=== PATIENT | female | born 1940 | race Caucasian/White ===

== ENCOUNTER 2016-06-14 12:49 | Day surgery (SDC) | payer MEDICARE, OTHER ==
[2016-06-14 13:17] VITALS: BP 162/93; PULSE 67; RESP 20; TEMP 98.1; O2SAT 94
--- NOTE | 2016-06-14 14:55 | RADRPT ---
EXAM DATE/TIME: 06/14/2016 00:00 [facility] COMPARISON : No previous studies available for comparison. INDICATIONS : Aneurysm OBJECTIVE: Temperature: 98.1 Heart Rate: 87 Blood Pressure: 121/70 Respiratory: 18 Oximetry: 95 PNEUMONIA VACCINE: YES HISTORY OF PRESENT ILLNESS: #1. Left cerebral aneurysm #2. Left carotid stenosis PAST MEDICAL HISTORY : 1. Hypercholesterolemia. 2. Hypothyroidism. 3. Anxiety PAST SURGICAL HISTORY : 1. Breast cyst removal 2. Tonsilectomy 3. Colonoscopy SOCIAL HISTORY : No alcohol use. No alcohol use. Tobacco;former. ALLERGIES: 1. NKDA MEDICATIONS: 1. Fluoxetine 40 mg q.d. 2. Zocor (Simvastatin) 20 mg q.d. 3. Levothyroxin 100 mcg q.d. PHYSICAL EXAMINATION: Please see H&P from Dr. Maldonado Patient appears neurologically intact IMAGING STUDIES: MRA of the carotid arteries and brain was performed 05/13/2016 MRA carotids: Apparent significant luminal narrowing is identified in the proximal left internal carotid artery how ever motion artifact over the affected area is noted. MRA brain: A 7 mm aneurysm is identified originating from the intracranial segments of the left ICA. Aneurysm ap pears to have a favorable neck for endovascular treatment ASSESSMENT: Left internal carotid artery stenosis which may be hemodynamically significant. Left intracranial cerebral aneurysm which appears favorable for endovascular treatment. PLAN: Further evaluation of the carotid stenosis and aneurysm is needed with CTA. Urgent CTA has been reque sted at [facility]. TIME SPENT: 30 minutes Danie Christensen MD on June 14, 2016 at 14:36 Board Certified Radiologist. This report was verified electronically.
== END 2016-06-14 14:50 | disposition home or self-care (01) ==
LOC: HROP 12:49 → HRIP 12:53 → HROP 14:50
PROVIDERS: ATTEND Radiology Diagnostic Radiology
DX: I65.22 Occlusion and stenosis of left carotid artery (principal); I67.1 Cerebral aneurysm, nonruptured; E03.9 Hypothyroidism, unspecified; E78.00 Pure hypercholesterolemia, unspecified; F41.9 Anxiety disorder, unspecified
CPT/HCPCS: 99213; G0463

== ENCOUNTER 2016-06-19 08:45 | Inpatient (IN) | payer MEDICARE, OTHER ==
[~2016-06-19] VITALS: Ht 167.6 cm; Wt 71.6 kg
[2016-06-19 09:11] VITALS: BP 162/97; PULSE 77; RESP 20; TEMP 98.4; O2SAT 94
[2016-06-19] MEDS ORDERED: LEVO100T5 PO (09:20)
[2016-06-19] MEDS ORDERED: ZOCO20TA PO ×2 (09:20→18:50)
[2016-06-19] MEDS ORDERED: FLUO10CA5 PO (09:20)
[2016-06-19 09:59] LABS: AUTOMATED NEUTROPHIL # 3.4 TH/MM3 (1.8-7.7); BASOPHIL % 0.5 % (0.0-2.0); EOSINOPHIL # 0.1 TH/MM3 (0-0.4); EOSINOPHIL % 2.2 % (0.0-4.0); HEMATOCRIT 40.2 % (35.0-46.0); HEMO FLAGS DIFF FINAL; LYMPH % 28.4 % (9.0-44.0); LYMPHOCYTE # 1.6 TH/MM3 (1.0-4.8); MEAN CELL VOLUME 87.7 FL (80.0-100.0); MEAN CORPUSCULAR HEMOGLOBIN 29.5 PG (27.0-34.0); MEAN CORPUSCULAR HGB CONC 33.7 % (32.0-36.0); MONO % 10.3 % (0.0-8.0); NEUT % 58.6 % (16.0-70.0); PLATELET COUNT 203 TH/MM3 (150-450); RED BLOOD COUNT 4.59 MIL/MM3 (4.00-5.30); RED CELL DISTRIBUTION WIDTH 14.6 % (11.6-17.2); WHITE BLOOD COUNT 5.8 TH/MM3 (4.0-11.0)
[2016-06-19 10:04] LABS: APTT (PATIENT) 25.3 SEC (24.3-30.1); PROTHROMBIN TIME - PATIENT 10.8 SEC (9.8-11.6)
[2016-06-19 10:20] LABS: BICARBONATE 24.1 MEQ/L (21.0-32.0)
[2016-06-19] MEDS ORDERED: VERAPAMIL HCL 5 MG/2 ML VIAL ONE (13:44)
[2016-06-19] MEDS ORDERED: MIDAZOLAM HCL 2 MG/2 ML VIAL ONE (15:12)
[2016-06-19] MEDS ORDERED: fentaNYL CITRATE 250 MCG/5 ML AMP ONE (15:13)
[2016-06-19] MEDS ORDERED: HEPARIN SODIUM - IV 10,000 UNITS/10 ML VIAL ONE (15:19)
--- NOTE | 2016-06-19 16:37 | PD.RAD ---
Post Procedure Progress Note Pre Procedure Diagnosis: (1) Cerebral aneurysm without rupture Post Procedure Diagnosis: (1) Cerebral aneurysm without rupture Procedure Date: Jun 19, 2016 Supervising Radiologist: Danie Christensen Proceduralist/Assist: Dane Wood, RT(R), Yue Rebollar RT(R)(), Christina Natarajan RT(R)() Anesthesia: General, Local Plan of Activity Patient to Unit: Critical Care Patient Condition: Good See PACS Report for procedural detail/treatment Vascular-Arterial Procedure Procedure 1 Procedure Site: Cerebral Procedure(s): Intracranial Aneurysm Repair Access Access Site(s): Right Femoral Artery Closure Site(s): Right vascular closure device Findings: 7-8mm Lt ICA intracranial aneurysm. 3 mm Lt MCA (M2) aneurysm. Treament Area: Lt ICA aneurysm treated with endovascular coiling. No Acute complications during procedure. Plan Pt to [facility] for post coiling monitoring. Discharge in am on 06/20 if neurologically stable. Danie Christensen MD Jun 19, 2016 16:37
[2016-06-19] MEDS ORDERED: IODIXANOL 320 MG/ML 50 ML VIAL (for RAD SPEC) I-ARTERIAL ONE (16:43)
[2016-06-19] MEDS ORDERED: ACETAMINOPHEN 325 MG TAB PO PRN (16:45)
[2016-06-19 18:00] VITALS: PULSE 68
[2016-06-19] MEDS ORDERED: DO NOT ADM ANY ANTICOAGULANT DRUGS PRN (18:30)
--- NOTE | 2016-06-19 19:00 | PD.CONS ---
HPI Service [facility] Consult Requested By Dr. Lomax Reason for Consult Hx of: Hyperlipidemia, Hypothyroidism, Anxiety - status post Intracranial stenting today, for aneurysm - acute right ear bleed Primary Care Physician Maya Maldonado M.D. Diagnoses: (1) Cerebral aneurysm without rupture (2) Generalized anxiety disorder (3) Hyperlipidemia (4) Hypothyroidism (5) Ear bleeding History of Present Illness Mrs. Lindsay is a 75 year old female. She is here for stenting of an intracranial anneurysm. This process is completed and I am seeing her after the procedure. A recent onset of bleeding of her right ear canal is reported. She used a Q-tip this morning and feels she may have irritated or scratched her ear at that time. With recent heparin use she may have some bleeding related to this. Presently she has a headache, but it is not worse than what has been present all day. No neuro deficits reported. Review of Systems Constitutional: DENIES: Chills, Dizziness Eyes: DENIES: Blurred vision Ears, nose, mouth, throat: DENIES: Throat pain, Ear Pain Respiratory: DENIES: Shortness of breath Cardiovascular: DENIES: Chest pain Gastrointestinal: DENIES: Abdominal pain Neurologic: COMPLAINS OF: Headache, DENIES: Localized weakness, Paresthesias, Seizures, Speech Problems Past Family Social History Allergies: Coded Allergies: No Known Allergies (Unverified , 06/19/16) Past Medical History (stated in H&P) Reported Medications Reported Meds & Active Scripts Active Reported Zocor (Simvastatin) 20 Mg Tab 20 Mg PO DAILY Levothyroxine (Levothyroxine Sodium) 100 Mcg Tab 100 Mcg PO DAILY Fluoxetine (Fluoxetine HCl) 10 Mg Cap 4 Mg PO DAILY Active Ordered Medications Administered Medications Medications (Trade) Dose Ordered Sig/Anna Route PRN Reason Start Time Stop Time Status Last Admin Dose Admin Acetaminophen (Tylenol) 650 mg Q4H PRN PO PAIN SCALE 1 TO 10 06/19/16 16:45 06/19/16 18:07 Physical Exam Vital Signs Vital Signs Date Time Temp Pulse Resp B/P Pulse Ox O2 Delivery O2 Flow Rate FiO2 06/19/16 18:00 68 06/19/16 17:40 66 14 157/89 98 Nasal Cannula 2 06/19/16 17:30 67 14 161/63 98 Nasal Cannula 2 06/19/16 17:15 67 14 167/87 98 Nasal Cannula 2 06/19/16 17:00 70 14 160/84 99 Nasal Cannula 2 06/19/16 16:50 97.4 71 14 159/81 99 Nasal Cannula 2 06/19/16 09:24 94 Room Air 06/19/16 09:11 98.4 77 20 162/97 94 Physical Exam GENERAL: A&Ox3, NAD SKIN: Warm and dry. HEAD: Normocephalic. EYES: No scleral icterus. No injection or drainage. Ears: Left ear is normal in appearance. Right ear has blood pooled within the ear canal and against the tympanic membrane. Full visualization is not possible with blood. No tenderness with maneuvering of ear. No evidence of erythema or bulging in what can be seen. I see evidence of a low volume bleed, but no active bleed to denote relative high blood loss for that area. (rebleed of previously sustained benign abrasion due to heparin suspected) NECK: Supple, trachea midline. No JVD or lymphadenopathy. CARDIOVASCULAR: Regular rate and rhythm without murmurs, gallops, or rubs. RESPIRATORY: Breath sounds equal bilaterally. No accessory muscle use. GASTROINTESTINAL: Abdomen soft, non-tender, nondistended. MUSCULOSKELETAL: No cyanosis, or edema. BACK: Nontender without obvious deformity. No CVA tenderness. Laboratory Laboratory Tests Test 06/19/16 09:35 White Blood Count 5.8 Red Blood Count 4.59 Hemoglobin 13.5 Hematocrit 40.2 Mean Corpuscular Volume 87.7 Mean Corpuscular Hemoglobin 29.5 Mean Corpuscular Hemoglobin 33.7 Concent Red Cell Distribution Width 14.6 Platelet Count 203 Mean Platelet Volume 8.3 Neutrophils (%) (Auto) 58.6 Lymphocytes (%) (Auto) 28.4 Monocytes (%) (Auto) 10.3 Eosinophils (%) (Auto) 2.2 Basophils (%) (Auto) 0.5 Neutrophils # (Auto) 3.4 Lymphocytes # (Auto) 1.6 Monocytes # (Auto) 0.6 Eosinophils # (Auto) 0.1 Basophils # (Auto) 0.0 CBC Comment DIFF FINAL Differential Comment Prothrombin Time 10.8 Prothromb Time International 1.0 Ratio Activated Partial 25.3 Thromboplast Time Sodium Level 140 Potassium Level 4.0 Chloride Level 106 Carbon Dioxide Level 24.1 Anion Gap 10 Blood Urea Nitrogen 14 Creatinine 0.80 Estimat Glomerular Filtration 70 Rate Random Glucose 99 Calcium Level 8.9 Result Diagram: 06/19/16 0935 06/19/1635 Assessment and Plan Problem List: (1) Cerebral aneurysm without rupture ICD Code: I67.1 Status: Acute Plan: Status post stenting today Follow clinically overnight Patient to report any neuro changes or change in headache (2) Generalized anxiety disorder ICD Code: F41.1 Status: Chronic Plan: Resume SSRI in AM (3) Hyperlipidemia ICD Code: E78.5 Status: Acute Plan: Resume statin (4) Hypothyroidism ICD Code: E03.9 Status: Acute Plan: Resume treatment in AM (5) Ear bleeding ICD Code: H92.20 Status: Acute Plan: Etiology is likely abrasion from Q-tip use in AM with rebleeding from heparin use Low risk for tympanic perforation Blood obstructs view of right tympanic membrane No erythema on visualized aspects of ear and tympanic membrane No signs of bulging of tympanic membrane Will evaluate again in AM Problem Qualifiers (1) Hyperlipidemia: Qualified Code: E78.5 - Hyperlipidemia, unspecified hyperlipidemia type (2) Hypothyroidism: Qualified Code: E03.9 - Hypothyroidism, unspecified type (3) Ear bleeding: Qualified Code: H92.21 - Ear bleeding, right Benjie Beavers MD Jun 19, 2016 19:00
[2016-06-19 20:00] VITALS: BP 120/61; PULSE 66; RESP 24; TEMP 97.7; O2SAT 96
[2016-06-19] MEDS: oxyCODONE/ACETAMINOPHEN 5 MG/325 MG TAB PO PRN (20:02)
[2016-06-19] MEDS ORDERED: ATORVASTATIN 20 MG TAB PO SCH (21:00)
--- NOTE | 2016-06-19 21:57 | EKG ---
Date Performed: 06/19/2016 Time Performed: 09:22:07 PTAGE: 75 years EKG: Sinus rhythm WITH MARKED SINUS ARRHYTHMIA BORDERLINE ECG NO PREVIOUS TRACING DOCTOR: Tony Johnson Interpretating Date/Time 06/19/2016 21:56:17
[2016-06-19 22:00] VITALS: PULSE 64
[2016-06-20] VITALS: BP 101/61; PULSE 65; RESP 16; TEMP 97.7; O2SAT 95
[2016-06-20 02:00] VITALS: PULSE 76
[2016-06-20 04:00] VITALS: BP 118/62; PULSE 65; RESP 22; TEMP 98; O2SAT 95
[2016-06-20] MEDS: oxyCODONE/ACETAMINOPHEN 5 MG/325 MG TAB PO PRN ×2 (04:24→08:55)
[2016-06-20 06:00] VITALS: PULSE 63
[2016-06-20] MEDS ORDERED: LEVOTHYROXINE SODIUM 100 MCG TAB PO SCH (06:00)
[2016-06-20 08:00] VITALS: BP 140/63; PULSE 74; PULSE 85; PULSE 87; RESP 13; TEMP 98.2; O2SAT 97
--- NOTE | 2016-06-20 08:21 | PD.RAD ---
Radiology Note Status post Lt ICA intracranial aneurysm coiling. S: Pt alert and oriented. O: Neurologically intact. Groin supple without hematoma. A: Doing well s/p coiling. P: Pt ok to discharge to self care. Post procedure instructions given. Follow up appt on July 08 in [facility]. Danie Christensen MD Jun 20, 2016 08:21
--- NOTE | 2016-06-20 08:46 | RADRPT ---
EXAM DATE/TIME: 06/19/2016 14:56 [facility] COMPARISON: No previous studies available for comparison. INDICATIONS : Patient is in need of a cerebral angiogram with arterial embolization due to left sided aneurysm. MEDICAL HISTORY : History of hypothyroidism, hypercholesteremia, osteopenia, anxiety. SURGICAL HISTORY : History of breast cyst removal, tonsillectomy, colonoscopy. ENCOUNTER: Initial ACUITY: 4-6 months PAIN SCORE: 0/10 FLUORO TIME: 23.3 minutes IMAGE SERIES: 14 ACCESS SITE: Right Femoral artery CONTRAST: 74 cc Visipaque (iodixanol) MEDICATION(S): 1.) 7000 units Heparin IV Vancomycin within 2 hours of procedure, Ancef (or alternative) within 1 hour of procedure. DEVICE(S): 1.) Left internal carotid artery embolic coil(s) 7mm x 14cm Micrusphere 2.) Left internal carotid artery embolic coil(s) 6mm x 10cm Galaxy Fill 3.) Left internal carotid artery embolic coil(s) 5mm x 10cm Galaxy Fill 4.) Left internal carotid artery embolic coil(s) 4mm x 6cm Galaxy Fill 5.) Left internal carotid artery embolic coil(s) 3mm x 6cm Galaxy Fill 6.) Right common femoral artery 6Fr Angio-Seal Anesthesia and pain control was provided by the Anesthesia department. PROCEDURE : 1. Ultrasound-guided puncture of the access site. 2. Angiography of the access site prior to closure device. 3. Conscious sedation with continuous EKG and Oximetry monitoring. 4. Percutaneous closure of the access site. 5. Angiography of the left extracranial carotid system 6. Angiography of the left cerebral circulation 7. Endovascular coiling of left internal carotid artery siphon aneurysm 8. Post coiling left cerebral arteriogram The risks, benefits and alternatives to the procedure were explained and verbal and written consent w as obtained. The site was prepped in sterile fashion. Full sterile technique was used, including ca p, mask, sterile gloves and gown and a large sterile sheet. Hand hygiene and 2% chlorhexidine and/or betadine/alcohol prep was utilized per protocol for cutaneous antisepsis. The skin and subcutaneous tissues were infiltrated with local anesthetic solution. With ultrasound and fluoroscopic guidance the selected artery was punctured and a vascular sheath was placed. Angiography of the common femoral artery was performed for evaluation prior to percutaneous closure device placement. A diagnostic catheter was advanced through the right femoral sheath into the aortic arch. The left co mmon carotid artery which has a bovine origin was selectively catheterized and a guidewire advanced i nto the left external artery. A 7 [place] sheath was then advanced over a guidewire and placed just be low the common carotid artery bifurcation. Angiography of the extracranial carotid system demonstrate d some minimal plaque in the proximal internal carotid artery but no significant stenosis. A tonsilla r loop was identified in the proximal ICA. A guidewire was gently advanced through the tonsillar loop to the petrous segment of the internal car otid artery. Endovascular support sheath was advanced and placed in the horizontal segment of thepetr ous ICA. This report to run was then performed. A 7-8 mm saccular aneurysm is identified off the internal pierce tid artery projecting laterally. The aneurysm originates proximal to the origin of the ophthalmic art corey. A second aneurysm is identified in the proximal middle cerebral artery. It appears to originate at th e temporal branch origin of the MCA. It measures approximately 3 mm in size.Under fluoroscopic observ ation a microcatheter was advanced through the endovascular sheath and positioned within the ICA aneu rysm. Endovascular coiling was then performed using a framing coil followed by 4 Galaxy Fill coils. Post intervention angiogram demonstrates good exclusion of the aneurysm with no significant filling. The proximal k circulation is widely patent without evidence of spasm, occlusions or filling defects. Hemostasis was obtained with the prescribed medicated closure device. General anesthesia was administ ered by the anesthesia department. CONCLUSION: Left cerebral angiography demonstrates the presence of 2 aneurysms. There is a 7-8 mm ICA aneurysm an d a 3 mm MCA aneurysm. Endovascular coiling of the ICA aneurysm was performed without procedural complication. Patient tolerated procedure well. Plan: Patient with place in the surgical intensive following procedure. Plan discharge for the following day if no neurologic comp occasions are noted. Danie Christensen MD on June 20, 2016 at 7:46 Board Certified Radiologist. This report was verified electronically.
--- NOTE | 2016-06-20 08:58 | HHI.DS ---
Discharge Summary Admission Date Jun 19, 2016 at 17:42 Discharge Date: Jun 20, 2016 Admitting Diagnosis Intracranial Aneurysm (1) Cerebral aneurysm without rupture ICD Code: I67.1 (2) Generalized anxiety disorder ICD Code: F41.1 Diagnosis: Secondary (3) Hyperlipidemia ICD Code: E78.5 Diagnosis: Secondary (4) Hypothyroidism ICD Code: E03.9 Diagnosis: Secondary (5) Ear bleeding ICD Code: H92.20 Diagnosis: Principal Procedures IC Aneurysm Stenting Brief History - From Admission Mrs. Lindsay is a 75 year old female. She is here for stenting of an intracranial anneurysm. This process is completed and I am seeing her after the procedure. A recent onset of bleeding of her right ear canal is reported. She used a Q-tip this morning and feels she may have irritated or scratched her ear at that time. With recent heparin use she may have some bleeding related to this. Presently she has a headache, but it is not worse than what has been present all day. No neuro deficits reported. CBC/BMP: 06/19/16 0935 06/19/16 0935 Significant Findings Laboratory Tests Test 06/19/16 09:35 Monocytes (%) (Auto) 10.3 % (0.0-8.0) Estimat Glomerular Filtration 70 ML/MIN (>89) Rate PE at Discharge GENERAL: A&Ox3, NAD SKIN: Warm and dry. HEAD: Normocephalic. EARS: Right Ear has caking of blood in the canal and at the ear drum with a small amount of pooled wet blood along the bottom of the ear canal. No pain. No signs of infection. EYES: No scleral icterus. No injection or drainage. NECK: Supple, trachea midline. No JVD or lymphadenopathy. CARDIOVASCULAR: Regular rate and rhythm without murmurs, gallops, or rubs. RESPIRATORY: Breath sounds equal bilaterally. No accessory muscle use. GASTROINTESTINAL: Abdomen soft, non-tender, nondistended. MUSCULOSKELETAL: No cyanosis, or edema. BACK: Nontender without obvious deformity. No CVA tenderness. Pt update on day of discharge Decreased headache. Decreased right ear bleed. Hospital Course Mrs. Lindsay is a 75 year old male. She was admitted for stenting of a Cerebral Aneurysm and had a successful procedure. Baseline treatments have been resumed. She had some bleeding at the right ear, which is observed to most likely be a combination of a recent abrasion from a Q-tip and need for Heparin during her procedure. The bleeding is resolved. Medically stable for discharge to home today. Cleared by IR for discharge today. Pt Condition on Discharge: Stable Discharge Disposition: Discharge Home Discharge Time: <= 30 minutes Discharge Instructions DIET: Follow Instructions for: As Tolerated, No Restrictions Speech Therapy-Diet Recommends: Regular Activities you can perform: Regular-No Restrictions Follow up Referrals: PCP Follow-up - 2 Weeks with Maya Maldonado M.d. Continued Medications: Fluoxetine (Fluoxetine) 10 Mg Cap 40 MG PO DAILY #30 Ref 0 CAP Levothyroxine (Levothyroxine) 100 Mcg Tab 100 MCG PO DAILY Thyroid #30 Ref 0 TAB Simvastatin (Zocor) 20 Mg Tab 20 MG PO HS Cholesterol Management #30 Ref 0 TAB Benjie Beavers MD Jun 20, 2016 08:58
[2016-06-20] MEDS ORDERED: FLUoxetine HCL 10 MG CAP PO SCH ×2 (09:00)
== END 2016-06-20 10:07 | disposition home or self-care (01) | DRG 27 ==
LOC: HSDC 08:45 → HRIP 08:46 → EDSTATUS 09:00 → N03B 17:42 → HSDC 17:42 → HRIP 17:42 → UNDOFXSDCSVC 17:42 → UNDOFXSDCACCOM 17:42 → N03B 17:42
PROVIDERS: ADMIT Hospitalist; ATTEND Hospitalist
PROC: 03VG3DZ Restriction of Intracranial Artery with Intraluminal Device, Percutaneous Approach (ICD-10-PCS; principal; 2016-06-19)
PROC: B31R1ZZ Fluoroscopy of Intracranial Arteries using Low Osmolar Contrast (ICD-10-PCS; 2016-06-19)
DX: I67.1 Cerebral aneurysm, nonruptured (principal); H92.20 Otorrhagia, unspecified ear; E03.9 Hypothyroidism, unspecified; E78.5 Hyperlipidemia, unspecified; F41.1 Generalized anxiety disorder; F41.9 Anxiety disorder, unspecified; R51 Headache
CPT/HCPCS: 36224; 36228; 61624; 75894; 75898; 80048; 82948; 85025; 85610; 85730; 87641; 93005; C1751; C1760; C1769; C1887; C1894; G0269; J1644; J2250; J3010; Q9967

== ENCOUNTER 2016-07-08 13:50 | Day surgery (SDC) | payer MEDICARE, OTHER ==
[~2016-07-08 13:50] MED LIST: FLUO10CA5 PO; LEVO100T5 PO; ZOCO20TA PO
[2016-07-08 14:10] VITALS: BP 120/84; PULSE 76; RESP 20; TEMP 97.7; O2SAT 96
--- NOTE | 2016-07-08 15:10 | RADRPT ---
EXAM DATE/TIME: 07/08/2016 00:00 [facility] COMPARISON : INDICATIONS : F/U Post cerebral aneurism repair OBJECTIVE: Temperature: 97.7 Heart Rate: 76 Blood Pressure: 120/84 Respiratory: 20 Oximetry: 96 HISTORY OF PRESENT ILLNESS: 75-year-old female returns for followup visit following brain aneurysm coiling. She denies any chronic headaches, double vision or paresthesias. PAST MEDICAL HISTORY : 1. Hypothyroidism. 2. Aneurysm, intracranial.coiled PAST SURGICAL HISTORY : 1. Cerebral aneurysm coiling SOCIAL HISTORY : No alcohol use. Tobacco; ALLERGIES: MEDICATIONS: 1. Simvastatin 20 mg q.d. 2. Levothyroxine 30 mcg q.d. 3. Fluoxetine 40 mg q.d. PHYSICAL EXAMINATION: Patient is alert and oriented. Pupils are equally reactive to light and accommodation. Sensory and motor strength is well-preserved in upper and lower studies. Patient ambulates without difficulty IMAGING STUDIES: None ASSESSMENT: Patient is doing very well following endovascular coiling of a left ICA intracranial aneurysm. She is neurologically intact without any sequela. PLAN: #1. MRA of the brain needs to be performed in 6 months as followup. #2. Patient will be followed by Dr. Pritchard TIME SPENT: 20 minutes Danie Christensen MD on July 08, 2016 at 15:02 Board Certified Radiologist. This report was verified electronically.
== END 2016-07-08 14:45 | disposition home or self-care (01) ==
LOC: HROP 13:50 → HRIP 13:57 → HROP 14:45
PROVIDERS: ATTEND Radiology Diagnostic Radiology
DX: Z09 Encounter for follow-up examination after completed treatment for conditions other than malignant neoplasm (principal)

== ENCOUNTER 2017-07-23 13:15 | Day surgery (SDC) | payer MEDICARE, OTHER ==
[2017-07-23 13:30] VITALS: BP 126/73; PULSE 82; RESP 20; TEMP 98.4; O2SAT 96
--- NOTE | 2017-07-24 10:22 | RADRPT ---
EXAM DATE: 07/23/2017 2:57 PM EDT AGE/SEX: 76 years / Female INDICATIONS: F/U CEREBRAL COILING HISTORY OF PRESENT ILLNESS: 76-year-old status post cerebral aneurysm coiling. TEMPERATURE: 98.4 HEART RATE: 82 BLOOD PRESSURE: 126/73 RESPIRATIONS: 20 OXIMETRY: 96 MEDICAL/SURGICAL HISTORY: Hypothyroidism. Aneurysm, intracranial. SOCIAL HISTORY: Alcohol use. ALLERGIES: NKA MEDICATIONS: [id number] q.d. ZOCOR 20MG q.h.s. PHYSICAL EXAM: Well-developed, well-nourished elderly woman in no acute distress IMAGING STUDIES: Patient's most recent MRA of the head was reviewed. This showed the prior aneurysm coiling on the lef t with minimal contrast identified at the base of the aneurysm. The dome appear to be well protected. Additional, 3 mm aneurysm in the left MCA territory is stable. No new aneurysms identified ASSESSMENT: Stable appearance of left-sided intracranial aneurysms as above. PLAN: Follow-up MRA in one year TIME SPENT: 10 minutes. Electronically signed by: Naveen Graham MD 07/24/2017 10:21 AM EDT
== END 2017-07-23 14:10 | disposition home or self-care (01) ==
LOC: HROP 13:15 → HRIP 13:16 → HROP 14:10
PROVIDERS: ATTEND Radiology Body Imaging
DX: I67.1 Cerebral aneurysm, nonruptured (principal); E03.9 Hypothyroidism, unspecified